=== PATIENT | male | born 1970 | race African-American/Black ===

== ENCOUNTER 2018-10-28 19:51 | Emergency (ER) | payer MEDICAID ==
[~2018-10-28] VITALS: Ht 175.3 cm; Wt 81.6 kg
[2018-10-28] MEDS ORDERED: Morphine Sulfate 2mg/ml Inj(IV/IM USE ONLY) IM ONE (20:00)
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
--- NOTE | 2018-10-28 20:11 | NUR ---
ED Nurse Note: pt down to ct
[2018-10-28 20:16] VITALS: BP 143/100
--- NOTE | 2018-10-28 20:20 | NUR ---
ED Nurse Note: pt back from ct.
[2018-10-28] MEDS ORDERED: BACITRACIN15 GM TOPIC (20:48)
[2018-10-28] MEDS ORDERED: ACETAMINOPHEN-1 EAC1 ORAL (20:48)
[2018-10-28] MEDS ORDERED: Bacitracin Oint UD TOPIC ONE (21:00)
[2018-10-28 21:05] VITALS: BP 134/98
--- NOTE | 2018-10-28 21:05 | NUR ---
ER DISCHARGE NOTE: Patient is cleared to be discharged per ERMD, pt is aox4, on room air, with stable vital signs. pt was given dc and prescription instructions, pt was able to verbalize understanding, pt id band REMOVED. pt is able to ambulate with steady gait. pt took all belongings.
--- NOTE | 2018-10-29 09:15 | Diagnostic Imaging Report ---
Indication: Neck pain. Technique: Continuous helical imaging of the cervical spine was obtained transaxially from the skull base to the upper thoracic spine. 2-D coronal and sagittal reformatted images were obtained. Automatic Exposure Control was utilized. Total Dose length Product (DLP): 2225.[address] Dose Index Volume (CTDIvol): 70.38,28.19,15.3 mGy Comparison: None Findings: There is no acute fracture or malalignment identified. There is no soft tissue swelling identified. Mild uncovertebral arthritis is demonstrated at multiple levels. Mild endplate spurs demonstrated in the mid cervical spine. C5-6 intervertebral disc shows mild narrowing. Impression: No acute injury Mild spondylosis [facility] has communicated the preliminary results to the Emergency Department. Their findings are largely concordant with this report. The CT scanner at [facility] is accredited by the [employer] and the scans are performed using dose optimization techniques as appropriate to a performed exam including Automatic Exposure control.
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
--- NOTE | 2018-10-29 10:49 | Diagnostic Imaging Report ---
Indication: Head trauma. Headache Technique: Contiguous 5 mm thick transaxial imaging of the head obtained in a Siemens Sensation [address] scanner. Soft tissue and bone windows generated. Automatic Exposure Control was utilized. Total Dose length Product (DLP): 2225.[address] Dose Index Volume (CTDIvol): 70.38,28.19,15.3 mGy Comparison: none Findings: There is mild prominence of the ventricles, basal cisterns, and cerebral sulci consistent with atrophy. Mild, nonspecific, white matter hypoattenuation is noted throughout the brain consistent with chronic small vessel disease. There is no midline shift, edema, acute hemorrhage, mass effect, or abnormal extra-axial fluid collections. There is no calvarial fracture. There is left periorbital soft tissue swelling. There is a fracture of the nasal bone. Impression: No acute intracranial bleed, mass effect or edema. Mild atrophy of the brain. Nonspecific white matter hypoattenuation probably due to chronic small vessel disease. Left periorbital contusion and nasal fracture The CT scanner at [facility] is accredited by the [employer] and the scans are performed using dose optimization techniques as appropriate to a performed exam including Automatic Exposure control.
== END 2018-10-28 21:05 | disposition home or self-care (01) ==
LOC: EDBD 19:51 → EMR 20:04
DX: S00.83XA Contusion of other part of head, initial encounter (principal); S02.2XXA Fracture of nasal bones, initial encounter for closed fracture; Y04.2XXA Assault by strike against or bumped into by another person, initial encounter; Y92.9 Unspecified place or not applicable; I10 Essential (primary) hypertension; M47.812 Spondylosis without myelopathy or radiculopathy, cervical region
CPT/HCPCS: 70450; 70486; 72125; 82962; 96372; 99284; J2270

== ENCOUNTER 2019-10-17 16:55 | Emergency (ER) | payer MEDICAID ==
[~2019-10-17] VITALS: Ht 177.8 cm; Wt 77.1 kg
[~2019-10-17 16:55] MED LIST: ACETAMINOPHEN-1 EAC1 ORAL; BACITRACIN15 GM TOPIC
[2019-10-17] MEDS ORDERED: QUETIAPINE FUMA25 MG ORAL (17:02)
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
[2019-10-17 17:14] VITALS: BP 130/90
--- NOTE | 2019-10-17 17:20 | NUR ---
ED Nurse Note: pt requested food. sandwich and soda given.
[2019-10-17 17:25] VITALS: BP 138/92
--- NOTE | 2019-10-17 17:25 | NUR ---
ER DISCHARGE NOTE: Patient is cleared to be discharged per ERMD, pt is aox4, on room air, with stable vital signs. pt was given dc and prescription instructions, pt was able to verbalize understanding, pt id band removed without complications. pt is able to ambulate with steady gait. pt took all belongings.
--- NOTE | 2019-10-17 17:26 | Emergency Room Report ---
History of Present Illness General Chief Complaint: Pain Source: Patient, EMS Present Illness HPI Patient presents initially with complaint of fall however Upon arrival essentially asking for sandwich Had initially complained of headache at this time denies any chest pain denies any vomiting Denies any lapse of consciousness Patient was a poor historian Essentially refusing to answer all the questions And repeatedly asking for sandwich patient became somewhat angry and irate And walking back and forth from his room Allergies: Coded Allergies: GABAPENTIN (Verified Allergy, Unknown, 10/17/19) COVID-19 Screening Contact w/high risk pt: No Recent Travel to affected area: No Experienced COVID-19 symptoms?: No Patient History Past Medical History: see triage record Reviewed Nursing Documentation: PMH: Agreed; PSxH: Agreed Nursing Documentation-PMH Hx Hypertension: Yes History Of Psychiatric Problem: Yes Review of Systems All Other Systems: negative except mentioned in HPI Physical Exam Vital Signs Date Time Temp Pulse Resp B/P (MAP) Pulse Ox O2 Delivery O2 Flow Rate FiO2 10/17/19 16:56 98.6 82 19 128/95 (106) 96 Room Air Sp02 EP Interpretation: reviewed, normal General Appearance: no apparent distress Head: normocephalic, atraumatic Eyes: bilateral eye PERRL, bilateral eye EOMI ENT: hearing grossly normal, EOM grossly intact Neck: supple Respiratory: lungs clear, no respiratory distress, no retraction Cardiovascular #1: regular rate, rhythm Gastrointestinal: non tender, soft Musculoskeletal: normal inspection Neurologic: alert, oriented x3 Psychiatric: other - Agitated Skin: no rash Lymphatic: no adenopathy Medical Decision Making Diagnostic Impression: Primary Impression: contusion ER Course Given the complaint and presentation multiple differentials were in consideration including but not limited to neurological orthopedic, metabolic emergencies, patient ambulatory without any focal deficit Essentially requesting sandwich And water Neurologically the patient is intact there are no signs of deficit patient somewhat agitated and refusing further evaluation And at this time is disposition for close outpatient follow-up Refusal of further work-up Last Vital Signs Date Time Temp Pulse Resp B/P (MAP) Pulse Ox O2 Delivery O2 Flow Rate FiO2 10/17/19 17:14 98.5 97 18 130/90 98 Room Air Status: improved Disposition: HOME, SELF-CARE Condition: Improved Referrals: [facility] Patient Instructions: Contusion, [id number] Additional Instructions: Patient is provided with the discharge instructions notified to follow up with primary doctor in the next 2-3 days otherwise return to the er with any worsening symptoms. Please note that this report is being documented using [employer] technology. This can lead to erroneous entry secondary to incorrect interpretation by the dictating instrument. Denise Braswell DO October 17, 2019 17:25
== END 2019-10-17 17:25 | disposition home or self-care (01) ==
LOC: EDBD 16:55 → EMR 17:24
DX: T14.8XXA Other injury of unspecified body region, initial encounter (principal); W19.XXXA Unspecified fall, initial encounter; Y92.9 Unspecified place or not applicable; Z88.8 Allergy status to other drugs, medicaments and biological substances; I10 Essential (primary) hypertension; R45.1 Restlessness and agitation
CPT/HCPCS: 99281